=== PATIENT | female | born 2000 | race Two or more races ===

== ENCOUNTER → 2023-10-13 | Outpatient (CLI) | payer SELFPAY ==
[2023-10-13 15:07] LABS: Absolute Lymphocyte Count 2.18 X10^3/uL (0.83-4.51); Absolute Neutrophil Count 6.2 X10^3/uL (2.0-7.7); Basophil# 0.03 X10^3/uL; Basophil% 0.3 % (0-1); Eosinophil# 0.08 X10^3/uL; Eosinophils% 0.9 % (0-5); Hematocrit 38.7 % (37-47); Hemoglobin 12.8 g/dL (12.0-15.0); Lymphocyte # 2.18 X10^3/ul (0.83-4.51); Lymphocyte % 23.8 % (19-41); Mean Corp Hgb Conc 33.1 g/dL (32-36); Mean Corpuscular Hgb 27.9 pg (27.0-32.0); Mean Corpuscular Volume 84.3 fL (81-99); Mean Platelet Vol. 9.4 fl (6.2-12.0); Monocyte# 0.61 X10^3/uL; Monocyte% 6.7 % (0-10); NRBC Flagged by Analyzer 0 % (0-5); Neutrophil # 6.18 X10^3/uL (2.7-7.7); Neutrophil % 67.5 % (47-70); Platelet Count 321 K/mm3 (150-450); RBC Distribution Width CV 12.9 % (11.6-14.6); RBC Distribution Width SD 39.1 fl (35.1-43.9); Red Blood Count 4.59 M/mm3 (4.2-5.4); White Blood Count 9.2 K/mm3 (4.4-11.0)
[2023-10-13 15:51] LABS: Estradiol 95.5 pg/mL; T4 Free Direct 0.93 ng/dL (0.76-1.46); Thyroid Stim Hormone (TSH) 1.75 uIU/mL (0.358-3.74)
[2023-10-13 17:23] LABS: Vitamin D,25 Hydroxy 23.4 ng/mL
[2023-10-15 04:07] LABS: Thyroid Peroxidase AB 54 IU/mL (0-34)
[2023-10-20 21:07] LABS: HPV APTIMA, High Risk Negative (Negative)
[2023-10-20 21:46] LABS: HPV Reflexed? YES, CHARGE PATIENT
== END | disposition home or self-care (01) ==
PROVIDERS: Referring Provider Nurse Practitioner Women's Health; Visit Provider Nurse Practitioner Women's Health
DX: Z12.4 Encounter for screening for malignant neoplasm of cervix (principal); N91.5 Oligomenorrhea, unspecified; Z13.21 Encounter for screening for nutritional disorder
CPT/HCPCS: 36415; 82306; 82670; 84439; 84443; 85025; 86376; 87624; 88175; G0145